=== PATIENT | female | born 1960 | race African-American/Black ===

== ENCOUNTER 2023-08-18 20:13 | Emergency (ER) | payer OTHER, SELFPAY ==
[2023-08-18 20:15] VITALS: BP 152/106
[2023-08-18 20:44] VITALS: BMI 37.7
[2023-08-18 20:45] VITALS: BP 157/109
--- NOTE | 2023-08-18 20:45 | ED.GENMED ---
History of Present Illness
General
Chief Complaint: Abdominal Pain
Source: patient
Time Seen by Provider: 08/18/23 20:38
Travel History
Have you had any contact with someone who has COVID-19?: No
Do you have any symptoms of coronavirus? Fever > 100 degrees, chills, cough, shortness of breath, sore throat, loss of taste or smell, muscle aches, or headache?: No
History of Present Illness
History of Present Illness:
63-year-old female presents to the emergency room complaining of multiple episodes of diarrhea today associate some lower abdominal pain. She has had about 6 episodes of diarrhea. [place] No one else sick no blood or
mucus in her stool.
Phy Exam
Physical Exam
Physical Exam:
General: Awake, Alert, Oriented X3. No acute distress.
Vitals: unremarkable
Head: Atraumatic
Eyes: Pupils equal, EOMI
Throat: Airway intact, no exudates
Neck: Trachea midline
Lungs: Clear and equal b/l
Heart: Regular rate, no murmurs
Abd: Soft, Nontender, No pulsatile mass
Neuro nonfocal
Skin: Warm, dry, no rash
Extremities: pulses equal b/l, no edema
Course
Orders/Labs/Results
Orders:
Orders
08/18/23 20:46
0.9% Sodium Chloride 500 ml [Nss] 500 ml IV BOLUS
08/18/23 20:52
Basic Metabolic Panel Urgent
Complete Blood Count/No Diff Urgent
08/18/23 21:49
Ibuprofen [Motrin] 600 mg .ROUTE .STK-MED ONE
08/18/23 21:51
Ibuprofen [Motrin] 600 mg PO NOW STA
Abnormal Lab Results
08/18/23
20:52
MCV 78.8 L fL
(81.0-99.0)
RDW 14.7 H %
(11.5-14.5)
Sodium 133 L mmol/L
(135-145)
08/18/23 20:52
08/18/23 20:52
Vital Signs
Initial and Last Documented VS:
Initial Vital Signs
Temp Pulse Resp BP Pulse Ox
98.3 F 102 20 152/106 99
08/18/23 20:15 08/18/23 20:15 08/18/23 20:15 08/18/23 20:15 08/18/23 20:15
Last Documented Vital Signs
Temp Pulse Resp BP Pulse Ox
98.3 F 102 20 157/109 99
08/18/23 20:15 08/18/23 20:15 08/18/23 20:15 08/18/23 20:45 08/18/23 21:15
MDM/Problems Addressed
Differential Diagnosis Includes:
food borne illness, c diff, viral gastroenteritis
MDM/Problems Addressed:
Pt tolerataing potato chips when I went in to re-evaluate the patient. Abd exam bening. Labs normal. Patient seems to have minimal diarrhea. Recommended brat diet and Imodium as needed.
*Critical Care Note
Total Time (30-74mins, 75-104mins- exclusive of procedures): Not Applicable
ED Attending Note
-
Portions of this chart may have been created with voice recognition software.� Occasional wrong word or��sound alike� substitutions may have occurred due to the inherent limitations of voice recognition software.
Discharge Plan
Departure
Patient Disposition: Home (Routine Discharge)
Date of Disposition: 08/18/23
Time of Disposition: 21:37
Patient with high blood pressure during this ER visit?: Yes
Condition: Good
Discharge Problem:
Diarrhea
Instructions: Diarrhea in adolescents and adults
Prescriptions:
No Action
metoprolol tartrate 25 mg Tablet
25 mg PO DAILY
Biktarvy 50-200-25 mg Tablet
1 tab PO DAILY
Referrals:
NONE,* [Family Provider] -
Activity Restrictions/Additional Instructions:
You can take Imodium for the diarrhea. This is likely a food borne illness that should pass over the next 2 to 3 days.
Interventions
Interventions:
*Risk Screen - Suicide Last Done: 08/18/23 20:15
*General Assessment Last Done: 08/18/23 20:15
*Neglect/Abuse Screening Last Done: 08/18/23 20:15
ED- Fall Risk Assessment Last Done: 08/18/23 20:40
*Nursing Disposition Last Done: 08/18/23 22:11
WF-Fdebcd-Dryviorzvp Assessment Last Done: 08/18/23 20:40
Discharge Date and Time
Discharge Date/Time: 08/18/23 22:11
[2023-08-18] MEDS: NSS 500 IV (20:54)
[2023-08-18 21:00] LABS: Hematocrit 37.5 % (37.0-47.0); Hemoglobin 12.9 g/dL (12.0-16.0); Mean Corp Hgb Conc. 34.4 g/dL (33.0-37.0); Mean Corpuscular Hgb 27.1 pg (27.0-31.0); Mean Corpuscular Volume 78.8 fL (81.0-99.0); Mean Platelet Volume 9.2 fL (7.4-10.4); Platelet Count 206 10^3/uL (130-400); Red Blood Cell Count 4.76 10^6/uL (4.20-5.40); Red Cell Dist. Width 14.7 % (11.5-14.5); White Blood Cell Count 5.6 10^3/uL (4.8-10.8)
[2023-08-18 21:18] LABS: Blood Urea Nitrogen 12 mg/dl (7-17); Calcium 8.5 mg/dl (8.4-10.2); Carbon Dioxide 24 mmol/L (22-30); Chloride 104 mmol/L (98-107); Estimated Creatinine Clearance 113 ml/min; Glucose 87 mg/dl (70-99); Sodium 133 mmol/L (135-145); eGFR > 60.00
[2023-08-18] MEDS: MOTRIN 600 MG PO (21:52)
== END 2023-08-18 22:11 | disposition home or self-care (01) ==
LOC: EMR 20:13
PROVIDERS: EMERGENCY PHYSICIAN Emergency Medicine
DX: R19.7 Diarrhea, unspecified (principal)
CPT/HCPCS: 99283; 80048; 85027

== ENCOUNTER 2023-10-09 22:29 | Emergency (ER) | payer OTHER, SELFPAY ==
[2023-10-09 22:35] VITALS: BP 163/107
--- NOTE | 2023-10-09 23:34 | ED.GENMED ---
History of Present Illness
General
Chief Complaint: Abdominal Symptoms
Source: patient
Exam Limitations: none
Time Seen by Provider: 10/09/23 22:52
Nursing documentation reviewed up to this point in time: agreed with
Travel History
Have you had any contact with someone who has COVID-19?: No
Do you have any symptoms of coronavirus? Fever > 100 degrees, chills, cough, shortness of breath, sore throat, loss of taste or smell, muscle aches, or headache?: No
History of Present Illness
History of Present Illness:
63-year-old female with past medical history of diabetes asthma hypertension presenting to the emergency department today with concerns of nausea vomiting diarrhea starting yesterday. Has had some mild abdominal but denies severe abdominal pain
denies fevers chest pain shortness of breath. Denies any known sick contacts.
Review of Systems
Review of Systems
Allergies reviewed?: Yes
All Other Systems: ROS reviewed and negative except as documented in HPI and ROS
Phy Exam
Physical Exam
Physical Exam:
GENERAL: Alert , in no apparent distress
EYE: pupils equal and reactive
NECK: Supple, no significant adenopathy.
ENT: o/p clr, mmm.
CARDIAC: Regular rate and rhythm .
LUNGS: Clear breath sounds bilaterally, no acute respiratory distress, no wheezes/rales/rhonchi
ABDOMEN: Soft, without focal tenderness, no r/g, no cvat
NEUROLOGICAL: Alert and oriented, no focal neuro deficits
SKIN: Warm and dry, skin intact.
MUSCULOSKELETAL: No edema, well perfused.
PSYCH: Normal and appropriate interaction.
Course
Orders/Labs/Results
Orders:
Orders
10/09/23 22:39
IV Insert/Care/Rem.- Treatment PRN
10/09/23 23:25
0.9% Sodium Chloride 1000 ml [Nss] 1,000 ml IV BOLUS
Famotidine [Pepcid] 20 mg IV NOW STA
Ondansetron Injectable [Zofran] 4 mg IV NOW STA
10/09/23 23:26
Complete Blood Count/With Diff Urgent
Comprehensive Metabolic Panel Urgent
Lipase Urgent
Abnormal Lab Results
10/09/23
23:26
RBC 4.13 L 10^6/uL
(4.20-5.40)
Hgb 11.2 L g/dL
(12.0-16.0)
Hct 32.7 L %
(37.0-47.0)
MCV 79.2 L fL
(81.0-99.0)
RDW 15.3 H %
(11.5-14.5)
Monocytes % 10.7 H %
(1.7-9.3)
Sodium 134 L mmol/L
(135-145)
BUN 6 L mg/dl
(7-17)
Glucose 104 H mg/dl
(70-99)
10/09/23 23:26
10/09/23 23:26
Vital Signs
Initial and Last Documented VS:
Initial Vital Signs
Temp Pulse Resp BP Pulse Ox
97.8 F 91 20 163/107 98
10/09/23 22:35 10/09/23 22:35 10/09/23 22:35 10/09/23 22:35 10/09/23 22:35
Last Documented Vital Signs
Temp Pulse Resp BP Pulse Ox
97.8 F 91 20 163/107 98
10/09/23 22:35 10/09/23 22:35 10/09/23 22:35 10/09/23 22:35 10/09/23 22:35
MDM/Problems Addressed
MDM/Problems Addressed:
63-year-old female presenting to the emergency department today with concerns of nausea vomiting diarrhea starting yesterday worse yesterday but somewhat ongoing today but improving. Vital signs showing elevated blood pressure but otherwise vital
signs are normal. Abdomen is soft and benign patient generally well-appearing no acute distress. Patient was given Zofran for nausea. Symptoms improving here labs unremarkable stable for outpatient management return precautions given.
*Critical Care Note
Total Time (30-74mins, 75-104mins- exclusive of procedures): Not Applicable
ED Attending Note
-
Portions of this chart may have been created with voice recognition software.� Occasional wrong word or��sound alike� substitutions may have occurred due to the inherent limitations of voice recognition software.
Discharge Plan
Departure
Patient Disposition: Home (Routine Discharge)
Date of Disposition: 10/10/23
Time of Disposition: 00:34
Patient with high blood pressure during this ER visit?: No
Condition: Good
Covid-19: Not Applicable
Discharge Problem:
Nausea, vomiting and diarrhea
Instructions: Nausea and Vomiting, Adult (DC)
Prescriptions:
No Action
metoprolol tartrate 25 mg Tablet
25 mg PO DAILY
Biktarvy 50-200-25 mg Tablet
1 tab PO DAILY
Referrals:
Christine Saleh DO [Family Provider] -
Activity Restrictions/Additional Instructions:
You came in the emergency room today with concerns of nausea vomiting diarrhea. Here you had a reassuring evaluation. This is likely a stomach bug. Return for any worsening or progressive symptoms.
Interventions
Interventions:
*Risk Screen - Suicide Last Done: 10/09/23 22:35
QA-Mewxbo-Ctwzxgbkku Assessment Last Done: 10/09/23 23:44
Discharge Date and Time
Print Language: MONTSERRATIAN
[2023-10-09] MEDS: ZOFRAN 4 MG IV (23:39)
[2023-10-09] MEDS: PEPCID 20 MG IV (23:39)
[2023-10-09] MEDS: NSS 1000 IV (23:39)
[2023-10-09 23:54] LABS: % Basophils 0.8 % (0-2); % Eosinophils 2.6 % (0-6); % Immature Granulocytes 0.2 % (0-0.5); % Lymphocytes 27.9 % (20.5-51.1); % Monocytes 10.7 % (1.7-9.3); % Neutrophils 57.8 % (42.2-75.2); Absolute Eosinophils 0.1 10^3/uL (0-0.7); Absolute Lymphocytes 1.4 10^3/uL (1.2-3.4); Absolute Monocytes 0.5 10^3/uL (0.1-0.6); Absolute Neutrophils 2.9 10^3/uL (1.4-6.5); Hematocrit 32.7 % (37.0-47.0); Hemoglobin 11.2 g/dL (12.0-16.0); Mean Corp Hgb Conc. 34.3 g/dL (33.0-37.0); Mean Corpuscular Hgb 27.1 pg (27.0-31.0); Mean Corpuscular Volume 79.2 fL (81.0-99.0); Mean Platelet Volume 9.3 fL (7.4-10.4); Nucleated Red Blood Cells % 0 %; Platelet Count 183 10^3/uL (130-400); Red Blood Cell Count 4.13 10^6/uL (4.20-5.40); Red Cell Dist. Width 15.3 % (11.5-14.5)
[2023-10-10 00:09] LABS: ALT (SGPT) 19 U/L (0-35); AST (SGOT) 33 U/L (14-36); Albumin 3.6 g/dl (3.5-5.0); Alkaline Phosphatase 90 U/L (38-126); Blood Urea Nitrogen 6 mg/dl (7-17); Carbon Dioxide 27 mmol/L (22-30); Chloride 106 mmol/L (98-107); Glucose 104 mg/dl (70-99); Lipase 200 U/L (23-300); Potassium 3.8 mmol/L (3.5-5.1); Sodium 134 mmol/L (135-145); Total Bilirubin 0.6 mg/dl (0.2-1.3); Total Protein 7.6 g/dl (6.3-8.2); eGFR > 60.00
[2023-10-10 00:38] VITALS: BP 155/98
== END 2023-10-10 00:58 | disposition home or self-care (01) ==
LOC: EMR 22:29
PROVIDERS: Student in an Organized Health Care Education/Training Program; EMERGENCY PHYSICIAN Emergency Medicine; FAMILY PHYSICIAN Student in an Organized Health Care Education/Training Program
DX: R19.7 Diarrhea, unspecified (principal); R11.2 Nausea with vomiting, unspecified
CPT/HCPCS: 99284; 96374; 96375; 96361; 80053; 83690; 85025

== ENCOUNTER 2023-10-10 20:02 | Emergency (ER) | payer OTHER, SELFPAY ==
[2023-10-10 20:16] VITALS: BP 149/104; BMI 35.9
--- NOTE | 2023-10-10 20:35 | ED.GENMED ---
History of Present Illness
<MINERVA Benjamin - Last Filed: 10/11/23 01:15>
General
Chief Complaint: Swelling
Source: patient
Exam Limitations: none
Time Seen by Provider: 10/10/23 20:24
Nursing documentation reviewed up to this point in time: agreed with
Travel History
Have you had any contact with someone who has COVID-19?: No
Do you have any symptoms of coronavirus? Fever > 100 degrees, chills, cough, shortness of breath, sore throat, loss of taste or smell, muscle aches, or headache?: No
History of Present Illness
History of Present Illness:
63 yr old female with past medical history of hypertension HIV positive, NIDDM history of lower extremity DVT currently not on blood thinners presents to the ED for evaluation of leg swelling and redness. Pt reports she was here in the ER yesterday
for nausea vomiting diarrhea that has resolved but today she noticed redness and swelling to bilateral legs worse on the left. She reports she was hospitalized at [facility] last week and dx w/ cellulitis. At that time she had fevers/chills. She
denies any fevers/chills currently.
Pt does reports her and her are currently homeless. They were living in the shelters but now shelters are closed. She is from [facility].
Review of Systems
<MINERVA Benjamin - Last Filed: 10/11/23 01:15>
Review of Systems
Allergies reviewed?: Yes
All Other Systems: ROS reviewed and negative except as documented in HPI and ROS
Constitutional: Reports no symptoms; Denies fever
Respiratory: Reports no symptoms; Denies trouble breathing
Cardiac: Reports no symptoms
ABD/GI: Reports no symptoms
Musculoskeletal: Reports other ( b/l leg swelling and redness to left thigh)
Skin: Reports no symptoms
Neurological: Reports no symptoms
Hematologic/Lymphatic: Reports no symptoms
Psychiatric: Reports no symptoms
Phy Exam
<MINERVA Benjamin - Last Filed: 10/11/23 01:15>
General Physical Exam
General Presentation: no apparent distress
General age: appears stated age
General Skin: warm and dry
General Habitus: normal
General Mental: alert
General Hydration: appears well hydrated
Cardiovascular Exam
Cardiovascular Exam: regular rate/rhythm
Pulmonary Exam
Pulmonary Exam: lungs clear and no respiratory distress
Neurological Exam
Neurological Exam: alert and oriented x3
Musculoskeletal Exam
Musculoskeletal Exam: other (b/l l/e mild swelling left thigh is mildly red mildly tender )
Skin Exam
Skin Exam: normal color and warm/dry
Psychiatric Exam
Psychiatric Exam: normal mood/affect
Scores
<MINERVA Benjamin - Last Filed: 10/11/23 01:15>
Heart Failure Risk
Heart Failure Risk Score: Not Applicable
Course
<MINERVA Benjamin - Last Filed: 10/11/23 01:15>
Orders/Labs/Results
Orders:
Orders
10/10/23 21:03
Venous Doppler Lwr Ext Bilat [US Periph Venous LOWER Ext Dipesh] Urgent
Comment:
Reason For Exam: l/e swelling
10/10/23 21:15
Lactic Acid Q4H
Comment: CANCEL 2nd LACTIC ACID IF 1st LACTIC ACID IS LESS THAN 2
10/10/23 22:55
Basic Metabolic Panel Urgent
Complete Blood Count/With Diff Urgent
Blood Culture Q30M
EARLENE Source: Blood/Venous
Specimen Description:
Blood Culture Q30M
EARLENE Source: Blood/Venous
Specimen Description:
10/11/23 01:07
Cephalexin Monohydrate [Keflex] 500 mg PO NOW STA
10/11/23 01:09
Vital Signs- Treatment ONCE
Frequency: Once
10/11/23 05:15
Lactic Acid Q4H
Comment: CANCEL 2nd LACTIC ACID IF 1st LACTIC ACID IS LESS THAN 2
Abnormal Lab Results
10/10/23
22:55
Hgb 11.6 L g/dL
(12.0-16.0)
Hct 33.7 L %
(37.0-47.0)
MCV 79.3 L fL
(81.0-99.0)
RDW 15.4 H %
(11.5-14.5)
MPV 10.8 H fL
(7.4-10.4)
Monocytes % 9.7 H %
(1.7-9.3)
Creatinine 1.1 H mg/dL
(0.6-1.0)
Glucose 103 H mg/dl
(70-99)
10/10/23 22:55
10/10/23 22:55
Vital Signs
Initial and Last Documented VS:
Initial Vital Signs
Temp Pulse Resp BP Pulse Ox
99 F 74 16 149/104 100
10/10/23 20:16 10/10/23 20:16 10/10/23 20:16 10/10/23 20:16 10/10/23 20:16
Last Documented Vital Signs
Temp Pulse Resp BP Pulse Ox
99 F 74 16 149/104 100
10/10/23 20:16 10/10/23 20:16 10/10/23 20:16 10/10/23 20:16 10/10/23 20:16
Business Performance Advisor consulted with Physician
Business Performance Advisor consulted with physician?: Yes
Name of Physician Consulted: Chuck
<Kennedy Santiago, DO - Last Filed: 10/11/23 01:30>
Orders/Labs/Results
Orders:
Orders
10/10/23 21:03
Venous Doppler Lwr Ext Bilat [US Periph Venous LOWER Ext Dipesh] Urgent
Comment:
Reason For Exam: l/e swelling
10/10/23 21:15
Lactic Acid Q4H
Comment: CANCEL 2nd LACTIC ACID IF 1st LACTIC ACID IS LESS THAN 2
10/10/23 22:55
Basic Metabolic Panel Urgent
Complete Blood Count/With Diff Urgent
Blood Culture Q30M
EARLENE Source: Blood/Venous
Specimen Description:
Blood Culture Q30M
EARLENE Source: Blood/Venous
Specimen Description:
10/11/23 01:07
Cephalexin Monohydrate [Keflex] 500 mg PO NOW STA
10/11/23 01:09
Vital Signs- Treatment ONCE
Frequency: Once
10/11/23 05:15
Lactic Acid Q4H
Comment: CANCEL 2nd LACTIC ACID IF 1st LACTIC ACID IS LESS THAN 2
Abnormal Lab Results
10/10/23
22:55
Hgb 11.6 L g/dL
(12.0-16.0)
Hct 33.7 L %
(37.0-47.0)
MCV 79.3 L fL
(81.0-99.0)
RDW 15.4 H %
(11.5-14.5)
MPV 10.8 H fL
(7.4-10.4)
Monocytes % 9.7 H %
(1.7-9.3)
Creatinine 1.1 H mg/dL
(0.6-1.0)
Glucose 103 H mg/dl
(70-99)
10/10/23 22:55
10/10/23 22:55
Vital Signs
Initial and Last Documented VS:
Initial Vital Signs
Temp Pulse Resp BP Pulse Ox
99 F 74 16 149/104 100
10/10/23 20:16 10/10/23 20:16 10/10/23 20:16 10/10/23 20:16 10/10/23 20:16
Last Documented Vital Signs
Temp Pulse Resp BP Pulse Ox
99 F 74 16 149/104 100
10/10/23 20:16 10/10/23 20:16 10/10/23 20:16 10/10/23 20:16 10/10/23 20:16
<MINERVA Benjamin - Last Filed: 10/11/23 01:15>
MDM/Problems Addressed
Differential Diagnosis Includes:
Not limited to cellulitis DVT
MDM/Problems Addressed:
Patient is a 63-year-old female currently homeless presents with to the ER. She complained of swelling in her legs now getting worse. Patient was seen here yesterday for nausea vomiting diarrhea symptoms have improved. In prior review of
records patient was also seen here 3/ for abd pain and was d/c home.
PT presents awake alert no acute distress denies any fevers. She is afebrile here with a normal white count, no acute abnormalities on labs. Potassium clotted here today but was normal 3.8 yesterday. On exam patient is obese legs are swollen
bilaterally (possible chronic )+ left thigh area appears mildly red mildly tender on exam ultrasounds negative. Patient eval by ED attending will cover on Keflex however safe for discharge home. Patient is very nontoxic. Patient reports he is
working with a friend to get an apartment. Pt has been eating reports she has money and a car.
<MINERVA Benjamin - Last Filed: 10/11/23 01:15>
*Radiology
Radiology exam reviewed: radiology read reviewed (verbal report by [employer] tech neg b/l for DVT )
*Pulse Oximetry
Patient hypoxic: no
*Critical Care Note
Total Time (30-74mins, 75-104mins- exclusive of procedures): Not Applicable
ED Attending Note
<MINERVA Benjamin - Last Filed: 10/11/23 01:15>
-
Portions of this chart may have been created with voice recognition software.� Occasional wrong word or��sound alike� substitutions may have occurred due to the inherent limitations of voice recognition software.
<Kennedy Santiago DO - Last Filed: 10/11/23 01:30>
ED Attending Note
Patient seen and examined by attending physician: Yes
I performed the substantive portion of visit, reviewed & personally made and approve the management plan that is documented in note by myself or ANDREIA.: Yes
ED Attending Note:
61-year-old female who is currently homeless. She states she is trying to get housing through her registered appraiser. Patient was in [place] in the past she states treated for cellulitis. She presents with a variety of complaints. On my exam reports
discomfort to the medial aspect of bilateral thighs left greater than right. Exam: Question very mild redness but otherwise no focal abscess. No palpable cords. No lymphangitic spread. Assessment and plan: White count, afebrile. Covered
antibiotics but outpatient follow-up recommended
Discharge Plan
Departure
Patient Disposition: Home (Routine Discharge)
Date of Disposition: 10/11/23
Time of Disposition: 01:09
Patient with high blood pressure during this ER visit?: Yes
Condition: Fair
Covid-19: Not Applicable
Discharge Problem:
Cellulitis
Instructions: Cellulitis (Skin Infection), Adult (DC)
Prescriptions:
New
cephalexin 500 mg capsule
500 mg PO Q6H Qty: 28 0RF
No Action
metoprolol tartrate 25 mg Tablet
25 mg PO DAILY
Biktarvy 50-200-25 mg Tablet
1 tab PO DAILY
Referrals:
[facility] [Provider Group]
[facility] [Outside]
Goldy,Luciano, MD [Family Provider] -
Activity Restrictions/Additional Instructions:
Antibiotic as directed for the next 7 days. Return if any worsening of symptoms including worsening redness fever chills.
Interventions
Interventions:
*Risk Screen - Suicide Last Done: 10/10/23 20:16
*Neglect/Abuse Screening Last Done: 10/10/23 20:16
*ED COVID-19 Vaccine History Last Done: 10/10/23 20:16
Discharge Date and Time
Print Language: SOMALI
[2023-10-10 23:03] LABS: % Basophils 0.8 % (0-2); % Immature Granulocytes 0.2 % (0-0.5); % Lymphocytes 32.9 % (20.5-51.1); % Monocytes 9.7 % (1.7-9.3); % Neutrophils 52.4 % (42.2-75.2); Absolute Eosinophils 0.2 10^3/uL (0-0.7); Absolute Lymphocytes 1.6 10^3/uL (1.2-3.4); Absolute Monocytes 0.5 10^3/uL (0.1-0.6); Absolute Neutrophils 2.6 10^3/uL (1.4-6.5); Hematocrit 33.7 % (37.0-47.0); Hemoglobin 11.6 g/dL (12.0-16.0); Mean Corp Hgb Conc. 34.4 g/dL (33.0-37.0); Mean Corpuscular Hgb 27.3 pg (27.0-31.0); Mean Corpuscular Volume 79.3 fL (81.0-99.0); Mean Platelet Volume 10.8 fL (7.4-10.4); Nucleated Red Blood Cells % 0 %; Platelet Count 179 10^3/uL (130-400); Red Blood Cell Count 4.25 10^6/uL (4.20-5.40); Red Cell Dist. Width 15.4 % (11.5-14.5)
[2023-10-10 23:28] LABS: Blood Urea Nitrogen 9 mg/dl (7-17); Calcium 9.4 mg/dl (8.4-10.2); Carbon Dioxide 26 mmol/L (22-30); Chloride 107 mmol/L (98-107); Estimated Creatinine Clearance 70 ml/min; Glucose 103 mg/dl (70-99); Sodium 136 mmol/L (135-145); eGFR 56.81
[2023-10-11] MEDS: KEFLEX 500 MG PO (01:19)
== END 2023-10-11 02:05 | disposition home or self-care (01) ==
LOC: EMR 20:02
PROVIDERS: Nurse Practitioner; EMERGENCY PHYSICIAN Emergency Medicine; FAMILY PHYSICIAN Family Medicine
DX: L03.116 Cellulitis of left lower limb (principal); L03.115 Cellulitis of right lower limb; Z59.00 Homelessness unspecified; I10 Essential (primary) hypertension; Z21 Asymptomatic human immunodeficiency virus [HIV] infection status; E11.9 Type 2 diabetes mellitus without complications; Z86.718 Personal history of other venous thrombosis and embolism
CPT/HCPCS: 99284; 80048; 85025; 87040; 93970

== ENCOUNTER 2024-06-13 20:18 | Emergency (ER) | payer OTHER, SELFPAY ==
[2024-06-13 20:50] VITALS: BP 159/94
--- NOTE | 2024-06-13 20:51 | ED.GENMED ---
ED Provider Triage
<Sean Finley Jr., PA-C - Last Filed: 06/13/24 20:53>
-
Patient seen by provider in Triage?: Seen in Triage
Attestation: A medical screening examination has been initiated by a qualified medical provider. Based on the assessment performed at this time, it has been determined that an emergent medical condition may exist and the patient has been informed
that further medical evaluation and possible additional diagnostic testing may be needed.
HPI: 64-year-old female presenting after a trip and fall yesterday where she hit her head. Ongoing headaches and some nausea no vomiting no numbness or weakness able to walk and ambulate plan for CT scan due to patient's advanced age and ongoing
worsening headache.
GENERAL: Alert , in no apparent distress
EYE: No visual abnormalities.
NECK: Trachea midline
ENT: No visible abnormalities.
LUNGS: No acute respiratory distress
NEUROLOGICAL: Alert and oriented
SKIN: Skin intact. No visible changes.
MUSCULOSKELETAL: Moving extremities normally
PSYCH: Normal and appropriate interaction.
This is a medical evaluation conducted in person to initiate diagnostic evaluation and provide initial therapeutics. Please see further documentation by the treating clinician.
History of Present Illness
<Sean Finley Jr., PA-C - Last Filed: 06/13/24 20:53>
General
Chief Complaint: Fall
Time Seen by Provider: 06/13/24 21:55
<Juan Carlos Parada PA-C - Last Filed: 06/13/24 23:33>
General
Source: patient
History of Present Illness
History of Present Illness:
64-year-old female with past medical history of hypertension and cha-vpskuiq-ctiyednwt diabetes presenting to the emergency department after she had an accidental trip and fall yesterday striking her head on a piece of metal and also falling onto
both knees. Patient states since that time she has had a mild frontal headache. She denies any other concerns at this time. No LOC, no vomiting, no vision changes, no focal weakness or numbness. Patient denies any use of anticoagulants. Patient
has not taken any medications for relief of her headache prior to arrival.
Past History
<Juan Carlos Parada PA-C - Last Filed: 06/13/24 23:33>
Past History
ED Past Medical History: Asthma, HTN and Psychiatric
ED Past Surgical History: Cholecystectomy and
Social History
Tobacco: Non-smoker
Alcohol: None
Drug: None
Living: with family
Review of Systems
<AMIRA Mark Last Filed: 06/13/24 23:33>
Review of Systems
All Other Systems: ROS reviewed and negative except as documented in HPI and ROS
Phy Exam
<AMIRA Mark Last Filed: 06/13/24 23:33>
Physical Exam
Physical Exam:
GENERAL: Alert , in no apparent distress
EYE: conjunctiva clear
Head: Normocephalic atraumatic
NECK: Supple,
ENT: mmm.
LUNGS: no acute respiratory distress
NEUROLOGICAL: Alert and oriented
SKIN: Warm and dry, skin intact.
MUSCULOSKELETAL: well perfused.
PSYCH: Normal and appropriate interaction.
Scores
<AMIRA Mark Last Filed: 06/13/24 23:33>
Heart Failure Risk
Heart Failure Risk Score: Not Applicable
Heart Score for Chest Pain Patients
STEMI patient?: Not applicable
Withdrawal Assessment of Alcohol
Withdrawal Assessment Completed?: Not applicable
Course
<Sean Finley Jr., PA-C - Last Filed: 06/13/24 20:53>
Orders/Labs/Results
Orders:
Orders
06/13/24 20:53
CT Head W/o Iv Contrast Urgent
Comment:
Reason For Exam: fll hiti head
06/13/24 22:48
Acetaminophen [Tylenol] 650 mg PO NOW STA
Vital Signs
Initial and Last Documented VS:
Initial Vital Signs
Temp Pulse Resp BP Pulse Ox
98.3 F 68 16 159/94 99
06/13/24 20:50 06/13/24 20:50 06/13/24 20:50 06/13/24 20:50 06/13/24 20:50
Last Documented Vital Signs
Temp Pulse Resp BP Pulse Ox
98.3 F 68 16 159/94 99
06/13/24 20:50 06/13/24 20:50 06/13/24 20:50 06/13/24 20:50 06/13/24 20:50
<Juan Carlos Parada PA-C - Last Filed: 06/13/24 23:33>
Orders/Labs/Results
Orders:
Orders
06/13/24 20:53
CT Head W/o Iv Contrast Urgent
Comment:
Reason For Exam: fll hiti head
06/13/24 22:48
Acetaminophen [Tylenol] 650 mg PO NOW STA
Vital Signs
Initial and Last Documented VS:
Initial Vital Signs
Temp Pulse Resp BP Pulse Ox
98.3 F 68 16 159/94 99
06/13/24 20:50 06/13/24 20:50 06/13/24 20:50 06/13/24 20:50 06/13/24 20:50
Last Documented Vital Signs
Temp Pulse Resp BP Pulse Ox
98.3 F 68 16 159/94 99
06/13/24 20:50 06/13/24 20:50 06/13/24 20:50 06/13/24 20:50 06/13/24 20:50
<Juan Carlos Parada PA-C - Last Filed: 12/27/24 23:33>
MDM/Problems Addressed
Differential Diagnosis Includes:
Contusion, concussion, intracranial bleeding, accidental fall, no symptoms to suggest syncope
MDM/Problems Addressed:
64-year-old female presenting the ER for evaluation of an accidental fall resulting in a head injury. Still with mild headache today. CT scan ordered in triage. Patient is otherwise hemodynamically stable and in no acute distress. Will treat
headache with Tylenol here at patient's request.
<Juan Carlos Parada PA-C - Last Filed: 06/13/24 23:33>
*Radiology
Radiology exam reviewed: radiology read reviewed
*Pulse Oximetry
Patient hypoxic: no
*Critical Care Note
Total Time (30-74mins, 75-104mins- exclusive of procedures): Not Applicable
<Juan Carlos Parada PA-C - Last Filed: 06/13/24 23:33>
Patient Management
Escalation/DeEscalation of care consider admission/obs:
Head CT is unremarkable for any acute pathology. Possible concussion given patient's symptoms. Discussed management of head injuries as well as supportive care and symptomatic treatment. Stable for discharge home and aware of return precautions.
ED Attending Note
<Sean Finley Jr., PA-C - Last Filed: 06/13/24 20:53>
-
Portions of this chart may have been created with voice recognition software.� Occasional wrong word or��sound alike� substitutions may have occurred due to the inherent limitations of voice recognition software.
Discharge Plan
Departure
Patient Disposition: Home (Routine Discharge)
Date of Disposition: 06/13/24
Time of Disposition: 22:48
Patient with high blood pressure during this ER visit?: Yes
Discharge Problem:
Accidental fall, Head injury
Instructions: Concussion, Adult (DC)
Prescriptions:
No Action
metoprolol tartrate 25 mg Tablet
25 mg PO DAILY
Biktarvy 50-200-25 mg Tablet
1 tab PO DAILY
cephalexin 500 mg capsule
500 mg PO Q6H Qty: 28 0RF
Referrals:
Luciano Winslow MD [Family Provider] -
Interventions
Interventions:
*Risk Screen - Suicide Last Done: 06/13/24 21:28
*General Assessment Last Done: 06/13/24 23:00
*Neglect/Abuse Screening Last Done: 06/13/24 21:28
*ED COVID-19 Vaccine History Last Done: 06/13/24 21:28
*Nursing Disposition Last Done: 06/13/24 23:00
ED-Musculoskeletal Assessment Last Done: 06/13/24 21:28
ED- Neurological Assessment Last Done: 06/13/24 21:28
ED-Skin Assessment Last Done: 06/13/24 21:28
Discharge Date and Time
Discharge Date/Time: 06/13/24 23:01
Print Language: LIBERIAN
[2024-06-13] MEDS: TYLENOL 650 MG PO (22:54)
== END 2024-06-13 23:01 | disposition home or self-care (01) ==
LOC: EMR 20:18
PROVIDERS: EMERGENCY PHYSICIAN Emergency Medicine; FAMILY PHYSICIAN Family Medicine
DX: S09.90XA Unspecified injury of head, initial encounter (principal); R51.9 Headache, unspecified; R11.0 Nausea; W01.198A Fall on same level from slipping, tripping and stumbling with subsequent striking against other object, initial encounter; I10 Essential (primary) hypertension; E11.9 Type 2 diabetes mellitus without complications; J45.909 Unspecified asthma, uncomplicated; Z90.49 Acquired absence of other specified parts of digestive tract; Z88.0 Allergy status to penicillin
CPT/HCPCS: 99284; 70450

== ENCOUNTER 2024-08-05 18:48 | Emergency (ER) | payer OTHER, SELFPAY ==
[2024-08-05 19:15] VITALS: BP 176/119
[2024-08-05 19:52] LABS: % Basophils 0.6 % (0-2); % Eosinophils 11.5 % (0-6); % Immature Granulocytes 0.2 % (0-0.5); % Lymphocytes 37.2 % (20.5-51.1); % Monocytes 8.3 % (1.7-9.3); % Neutrophils 42.2 % (42.2-75.2); Absolute Eosinophils 0.6 10^3/uL (0-0.7); Absolute Lymphocytes 1.8 10^3/uL (1.2-3.4); Absolute Monocytes 0.4 10^3/uL (0.1-0.6); Absolute Neutrophils 2.1 10^3/uL (1.4-6.5); Hematocrit 37.2 % (37.0-47.0); Hemoglobin 12.3 g/dL (12.0-16.0); Mean Corp Hgb Conc. 33.1 g/dL (33.0-37.0); Mean Corpuscular Hgb 28.5 pg (27.0-31.0); Mean Corpuscular Volume 86.1 fL (81.0-99.0); Mean Platelet Volume 9.4 fL (7.4-10.4); Nucleated Red Blood Cells % 0 %; Platelet Count 200 10^3/uL (130-400); Red Blood Cell Count 4.32 10^6/uL (4.20-5.40); Red Cell Dist. Width 14.4 % (11.5-14.5)
[2024-08-05 20:03] LABS: COVID-19 Antigen Negative (Negative)
[2024-08-05 20:05] LABS: ALT (SGPT) 18 U/L (0-35); AST (SGOT) 26 U/L (14-36); Albumin 4.3 g/dl (3.5-5.0); Alkaline Phosphatase 115 U/L (38-126); Blood Urea Nitrogen 13 mg/dl (7-17); Calcium 9.2 mg/dl (8.4-10.2); Carbon Dioxide 23 mmol/L (22-30); Chloride 102 mmol/L (98-107); Glucose 137 mg/dl (70-99); Potassium 4.1 mmol/L (3.5-5.1); Sodium 136 mmol/L (135-145); Total Bilirubin 0.7 mg/dl (0.2-1.3); Total Protein 8.1 g/dl (6.3-8.2); eGFR > 60.00
--- NOTE | 2024-08-05 22:14 | ED.GENMED ---
History of Present Illness
General
Chief Complaint: Throat Problem
Time Seen by Provider: 08/05/24 21:30
History of Present Illness
History of Present Illness:
Patient is a 64-year-old woman with history of diabetes, hypertension, presenting to the emergency department with concerns for losing her voice. Patient states for the past 2 weeks he is have cold-like symptoms. She went to an urgent care and
they diagnosed her with a virus. She states that since then she has been losing her voice. She does not have any difficulty swallowing. No chest pain. No difficulty breathing. The congestion has persisted but is slowly getting better. No
fevers or chills. No shortness of breath. No swallowed foreign bodies.
Past History
Past History
ED Past Medical History: Asthma, HTN and Psychiatric
ED Past Surgical History: Cholecystectomy and
Social History
Tobacco: Non-smoker
Alcohol: None
Drug: None
Living: with family
Phy Exam
Physical Exam
Physical Exam:
GENERAL: in no acute distress
HEENT: normocephalic, extraocular movements intact, moist oral mucosa, mild posterior oropharynx erythema, no significant enlargement of her tonsils
NECK: normal inspection
RESPIRATORY: no respiratory distress, clear to auscultation bilaterally
CARDIOVASCULAR: regular rate and rhythm
EXTREMITIES: non-tender, no edema/swelling
NEUROLOGIC: awake and alert, moves all extremities
SKIN: warm
Course
Orders/Labs/Results
Orders:
Orders
08/05/24 19:30
COVID-19 Antigen Urgent
Source: Nasal Swab
Complete Blood Count/With Diff Urgent
Comprehensive Metabolic Panel Urgent
Influenza A+B Rapid Molecular Urgent
EARLENE Source: Nasal Swab
Specimen Description:
Abnormal Lab Results
08/05/24
19:30
Eosinophils % 11.5 H %
(0-6)
Glucose 137 H mg/dl
(70-99)
08/05/24 19:30
08/05/24 19:30
Vital Signs
Initial and Last Documented VS:
Initial Vital Signs
Temp Pulse Resp BP Pulse Ox
98.6 F 70 18 176/119 98
08/05/24 19:15 08/05/24 19:15 08/05/24 19:15 08/05/24 19:15 08/05/24 19:15
Last Documented Vital Signs
Temp Pulse Resp BP Pulse Ox
98.6 F 70 18 176/119 98
08/05/24 19:15 08/05/24 19:15 08/05/24 19:15 08/05/24 19:15 08/05/24 21:15
MDM/Problems Addressed
Differential Diagnosis Includes:
Patient is a 64-year-old woman presenting to the emergency department with concerns for losing her voice with the cold that she recently had. Vitals are notable for being afebrile. On exam patient is resting comfortably. She is whispering when
she talks. She is protecting her airway and tolerating her secretions. No tonsillar enlargement. Likely laryngitis secondary to patient's viral illness. Other etiologies could be allergic laryngitis or reflux. Considered neoplasm though less
likely given that the symptoms occurred with the upper respiratory infection. Patient advised with anti-inflammatories, throat lozenge steam showers and humidified air. Will have patient follow-up with our residency clinic as well as give her
follow-up for ENT if symptoms do not resolve. I did offer him Motrin here however patient declined. Will discharge at this time.
*Critical Care Note
Total Time (30-74mins, 75-104mins- exclusive of procedures): Not Applicable
ED Attending Note
-
Portions of this chart may have been created with voice recognition software.� Occasional wrong word or��sound alike� substitutions may have occurred due to the inherent limitations of voice recognition software.
Discharge Plan
Departure
Patient Disposition: Home (Routine Discharge)
Date of Disposition: 08/05/24
Time of Disposition: 22:12
Patient with high blood pressure during this ER visit?: No
Discharge Problem:
Laryngitis
Instructions: Sore Throat, Adult (DC)
Prescriptions:
No Action
metoprolol tartrate 25 mg Tablet
25 mg PO DAILY
Biktarvy 50-200-25 mg Tablet
1 tab PO DAILY
cephalexin 500 mg capsule
500 mg PO Q6H Qty: 28 0RF
Referrals:
[facility] [Outside]
Missael Quezada MD [Active] - As needed
NONE,* [Family Provider] -
Activity Restrictions/Additional Instructions:
You were seen in the Emergency Department today for . Losing her voice while you were here we performed blood work, which was reassuring. Please try the anti-inflammatories, throat lozenges, steam shower and humidifier to help with your symptoms.
If your symptoms do not resolve after your cold has resolved please follow-up with the ear nose throat doctor for possible scope.
We would like for you to follow up with your primary care physician for further evaluation. If you experience fever, worsening of your symptoms, or develop any other new or concerning symptoms, please return to the Emergency Department immediately.
Please see the attached sheet for additional information.
Interventions
Interventions:
*Risk Screen - Suicide Last Done: 08/05/24 19:15
*General Assessment Last Done: 08/05/24 19:15
*Neglect/Abuse Screening Last Done: 08/05/24 19:15
*ED COVID-19 Vaccine History Last Done: 08/05/24 21:15
ED-EENT Assessment Last Done: 08/05/24 21:15
ED- Pulmonary Assessment Last Done: 08/05/24 21:15
Discharge Date and Time
Print Language: GREENLAND[place]
== END 2024-08-06 00:18 | disposition home or self-care (01) ==
LOC: EMR 18:48
PROVIDERS: Student in an Organized Health Care Education/Training Program; EMERGENCY PHYSICIAN Student in an Organized Health Care Education/Training Program
DX: J04.0 Acute laryngitis (principal); I10 Essential (primary) hypertension; E11.9 Type 2 diabetes mellitus without complications; Z11.52 Encounter for screening for COVID-19
CPT/HCPCS: 99283; 80053; 85025; 87502; 87811